=== PATIENT | female | born 1960 | race Caucasian/White ===

== ENCOUNTER 2016-12-26 | Emergency (ER) | payer OTHER ==
--- NOTE | 2016-12-26 00:47 | ED ---
HPI Chest Pain - HPI Summary HPI Summary: 56F presents with fluttering in chest today that last for several minutes. She had a hot flash at the same time and it woke her out of her sleep. She admits to SOB with it and tingling in her left arm. She states that she had a concussion a year ago and since then has been prone to anxiety attacks. Her symptoms currently have all resolved. She denies any chest pain. She did not check her pulse when the episode occurred. This has never happened before. She denies any lightheadedness. She admits to acid reflux but denies any nausea. She did have a large meal at 4pm which one glass of wine. She denies any PMH of HTN or DM. She has a family history of a fib and heart disease. She is a nonsmoker. - History of Current Complaint Chief Complaint: EDDysrhythmPalp Time Seen by Provider: 12/26/16 00:37 Pain Intensity: 0 - Allergy/Home Medications Allergies/Adverse Reactions: Allergies Allergy/AdvReac Type Severity Reaction Status Date / Time No Known Allergies Allergy Verified 12/26/16 00:13 PMH/Surg Hx/FS Hx/Imm Hx Endocrine/Hematology History: Denies: Hx Anticoagulant Therapy, Hx Diabetes Cardiovascular History: Denies: Hx Hypertension Neurological History: Reports: Other Neuro Impairments/Disorders - concussion - Cancer History Hx Chemotherapy: No Hx Radiation Therapy: No Infectious Disease History: No Infectious Disease History: Denies: Traveled Outside the [place] in Last 30 Days - Family History Known Family History: Positive: Cardiac Disease - Social History Alcohol Use: Occasionally Substance Use Type: Reports: None Smoking Status (MU): Never Smoked Tobacco Review of Systems Negative: Fever Positive: Palpitations - resolved. Negative: Chest Pain Positive: Shortness Of Breath - resolved Positive: Other - acid reflex like pain resolved. Negative: Vomiting, Diarrhea , Nausea All Other Systems Reviewed And Are Negative: Yes Physical Exam Triage Information Reviewed: Yes Vital Signs On Initial Exam: Initial Vitals Temp Pulse Resp BP Pulse Ox 96.3 F 97 17 154/94 100 12/26/16 00:02 12/26/16 00:02 12/26/16 00:02 12/26/16 00:02 12/26/16 00:02 Vital Signs Reviewed: Yes Appearance: Positive: Well-Appearing Skin: Positive: Warm, Dry Head/Face: Positive: Normal Head/Face Inspection Eyes: Positive: Normal, Conjunctiva Clear ENT: Positive: Normal ENT inspection, Pharynx normal, TMs normal Respiratory/Lung Sounds: Positive: Clear to Auscultation, Breath Sounds Present , Other - no reproducible chest pain Cardiovascular: Positive: Normal, RRR Abdomen Description: Positive: Nontender, Soft Bowel Sounds: Positive: Present - [place] Coma Scale Coma Scale Total: 15 Diagnostics - Vital Signs Vital Signs Temp Pulse Resp BP Pulse Ox 12/26/16 00:02 96.3 F 97 17 154/94 100 - Laboratory Result Diagrams: 12/26/16 00:10 12/26/16 00:10 Lab Statement: Any lab studies that have been ordered have been reviewed, and results considered in the medical decision making process. - Radiology chest Xray Interpretation: No Acute Changes Radiology Interpretation Completed By: ED Physician - EKG No standard instances Cardiac Rate: NL EKG Rhythm: Sinus Rhythm ST Segment: Normal Ectopy: None Chest Pain Course/Dx - Course Course Of Treatment: 56 F presents with heart racing, SOB, and left arm tingling that last several minutes this night that woke her from her sleep. She was having a hot flash at the same time. She denies any chest pain and upon arrival all symptoms have resolved. she has a normal PE. EKG normal, labs normal, discussed results with patient and will have follow up with primary and consider following up with pediatric acute care unit nurse, patient understands and agrees with plan - Chest Pain Differential Diagnosis/HQI/PQRI: Acute UT, ACS, Pulmonary Embolism, Other: - anxiety - Diagnoses Provider Diagnoses: Heart palpitations Discharge - Discharge Plan Condition: Good Disposition: HOME Patient Education Materials: Palpitations (ED) Referrals: Alivia Santana MD [Primary Care Provider] - Additional Instructions: Follow up with primary care physician within 5 days Return to ED if develop any chest pain or SOB or any new or worsening symptoms
[2016-12-26 01:00] LABS: Hematocrit 39 % (35-47); Hemoglobin 12.7 g/dl (12.0-16.0); Mean Corpuscular HGB Conc 33 g/dl (31-36); Mean Corpuscular Hemoglobin 28 pg (27-31); Mean Corpuscular Volume 86 fL (80-97); Mean Platelet Volume 9 um3 (7.4-10.4); Red Blood Count 4.55 10^6/ul (4.0-5.4); Red Cell Distribution Width 13 % (10.5-15); White Blood Count 9.3 10^3/ul (3.5-10.8)
[2016-12-26 01:10] LABS: Albumin 4.1 g/dL (3.2-5.2); Calcium 9.6 mg/dL (8.6-10.3); EGFR African American 94.8 (>60); EGFR Non-African American 73.7 (>60); Globulin 3.7 g/dL (2-4); Total Bilirubin 0.3 mg/dL (0.2-1.0); Total Protein 7.8 g/dL (6.4-8.9)
[2016-12-26 01:12] LABS: Troponin I 0.03 ng/mL (<0.04)
[2016-12-26 01:37] LABS: Potassium 3.6 mmol/L (3.5-5.0)
[2016-12-26 03:10] VITALS: BP 115/71
--- NOTE | 2016-12-26 11:25 | RAD ---
INDICATION: Chest pain, tachycardia and left-sided numbness COMPARISON: None. TECHNIQUE: Single AP portable view of the chest was obtained. FINDINGS: Image quality is compromised due to the relative inferiority of a portable chest x-ray. The heart and mediastinum exhibit normal size and contour. The lungs are grossly clear. There is no evidence of a large pleural effusion. Visualized bones are normal for the patient's age. IMPRESSION: No radiographic evidence for acute cardiopulmonary abnormality on this portable chest x-ray.
== END 2016-12-26 03:10 | disposition home or self-care (01) ==
LOC: ED
DX: R00.2 Palpitations (principal); K21.9 Gastro-esophageal reflux disease without esophagitis
CPT/HCPCS: 36415; 71010; 80053; 83605; 84443; 84484; 85025; 93005; 99283